=== PATIENT | female | born 1995 | race Two or more races ===

== ENCOUNTER 2020-07-05 07:23 | Emergency (ER) | payer OTHER ==
[~2020-07-05] VITALS: Ht 157.5 cm; Wt 45.4 kg
[2020-07-05] MEDS ORDERED: ZYRTEC10 M3 PO (07:37)
== END 2020-07-05 09:48 | disposition home or self-care (01) ==
LOC: ER 07:23
DX: T78.1XXA Other adverse food reactions, not elsewhere classified, initial encounter (principal); R21 Rash and other nonspecific skin eruption

== ENCOUNTER 2020-07-08 15:53 | Emergency (ER) | payer OTHER ==
[~2020-07-08] VITALS: Ht 154.9 cm; Wt 45.4 kg
[~2020-07-08 15:53] MED LIST: ZYRTEC10 M3 PO
[2020-07-08] MEDS ORDERED: BENADRYL25 MG PO (23:16)
== END 2020-07-08 23:33 | disposition home or self-care (01) ==
LOC: ER 15:53
DX: T78.1XXA Other adverse food reactions, not elsewhere classified, initial encounter (principal); R21 Rash and other nonspecific skin eruption

== ENCOUNTER 2020-12-13 02:18 | Emergency (ER) | payer OTHER ==
[~2020-12-13] VITALS: Ht 154.9 cm; Wt 45.4 kg
[~2020-12-13 02:18] MED LIST changes: +BENADRYL25 MG PO
[2020-12-13] MEDS ORDERED: ZYRTEC10 M3 (02:31)
[2020-12-13] MEDS ORDERED: BACLOFEN10 MG (02:31)
[2020-12-13] MEDS ORDERED: BENADRYL25 MG PO (06:09)
== END 2020-12-13 07:17 | disposition home or self-care (01) ==
LOC: ER 02:18
DX: G25.89 Other specified extrapyramidal and movement disorders (principal)

== ENCOUNTER 2020-12-14 13:41 | Emergency (ER) | payer OTHER ==
[~2020-12-14] VITALS: Ht 154.9 cm; Wt 45.4 kg
[~2020-12-14 13:41] MED LIST changes: +BACLOFEN10 MG; +ZYRTEC10 M3
== END 2020-12-14 19:55 | disposition home or self-care (01) ==
LOC: ER 13:41
DX: R51.9 Headache, unspecified (principal)

== ENCOUNTER 2021-07-29 07:28 | Outpatient (CLI) | payer OTHER | END 2021-07-29 07:41 | disposition home or self-care (01) | LOC: RAD 07:28 | PROVIDERS: ATTEND Anesthesiology Pain Medicine | DX: M41.34 Thoracogenic scoliosis, thoracic region (principal); M50.21 Other cervical disc displacement, high cervical region; E55.9 Vitamin D deficiency, unspecified; D51.9 Vitamin B12 deficiency anemia, unspecified ==

== ENCOUNTER 2021-09-05 21:31 | Emergency (ER) | payer OTHER ==
[~2021-09-05] VITALS: Ht 154.9 cm; Wt 46.3 kg
[2021-09-05] MEDS ORDERED: PROTONIX40 M1 (21:43)
[2021-09-05] MEDS ORDERED: ZITHROMAX500 MG PO (23:50)
[2021-09-05] MEDS ORDERED: TUSNEL LIQUID178 ML PO (23:51)
== END 2021-09-05 23:58 | disposition home or self-care (01) ==
LOC: ER 21:31
DX: J06.9 Acute upper respiratory infection, unspecified (principal); A49.3 Mycoplasma infection, unspecified site; B34.8 Other viral infections of unspecified site

== ENCOUNTER 2022-04-22 23:06 | Emergency (ER) | payer OTHER ==
[~2022-04-22] VITALS: Ht 154.9 cm; Wt 45.8 kg
[~2022-04-22 23:06] MED LIST changes: +PROTONIX40 M1; +TUSNEL LIQUID178 ML PO; +ZITHROMAX500 MG PO
[2022-04-23] MEDS ORDERED: DOLOGESIC-DF 51 EACH PO (06:07)
== END 2022-04-23 06:14 ==
LOC: ER 23:06
DX: S99.922A Unspecified injury of left foot, initial encounter (principal); W22.8XXA Striking against or struck by other objects, initial encounter; Y93.9 Activity, unspecified; Y92.9 Unspecified place or not applicable; Y99.9 Unspecified external cause status

== ENCOUNTER 2022-07-24 07:28 | Emergency (ER) | payer OTHER ==
[~2022-07-24] VITALS: Ht 154.9 cm; Wt 44.9 kg
[~2022-07-24 07:28] MED LIST changes: +DOLOGESIC-DF 51 EACH PO
[2022-07-24] MEDS ORDERED: ZYRTEC10 MG (07:43)
== END 2022-07-24 11:26 | disposition home or self-care (01) ==
LOC: ER 07:28
DX: O26.891 Other specified pregnancy related conditions, first trimester (principal); Z3A.01 Less than 8 weeks gestation of pregnancy; B34.9 Viral infection, unspecified; Z20.822 Contact with and (suspected) exposure to COVID-19; Z88.6 Allergy status to analgesic agent; Z91.013 Allergy to seafood; Z91.048 Other nonmedicinal substance allergy status

== ENCOUNTER 2022-08-08 19:22 | Emergency (ER) | payer OTHER ==
[~2022-08-08] VITALS: Ht 154.9 cm; Wt 44.9 kg
[~2022-08-08 19:22] MED LIST changes: +ZYRTEC10 MG
== END 2022-08-08 22:08 | disposition home or self-care (01) ==
LOC: ER 19:22
DX: O03.9 Complete or unspecified spontaneous abortion without complication (principal)

== ENCOUNTER 2022-10-08 09:58 | Emergency (ER) | payer OTHER ==
[~2022-10-08] VITALS: Ht 154.9 cm; Wt 45.8 kg
[2022-10-08] MEDS ORDERED: ZYRTEC10 MG PO (10:31)
[2022-10-08] MEDS ORDERED: PROTONIX40 MG PO (10:31)
[2022-10-08] MEDS ORDERED: ZITHROMAX500 MG PO (15:02)
== END 2022-10-08 15:27 | disposition home or self-care (01) ==
LOC: ER 09:58
DX: B34.9 Viral infection, unspecified (principal); Z20.822 Contact with and (suspected) exposure to COVID-19; Z88.6 Allergy status to analgesic agent; Z91.013 Allergy to seafood; Z91.018 Allergy to other foods

== ENCOUNTER 2024-02-23 13:00 | Inpatient (IN) | payer OTHER ==
[~2024-02-23] VITALS: Ht 154.9 cm; Wt 52.6 kg
[~2024-02-23 13:00] MED LIST changes: +PROTONIX40 MG PO; +ZYRTEC10 MG PO
[2024-03-09] VITALS (8 sets, daily range): BP systolic 106–130; BP diastolic 60–71
[2024-03-09] MEDS ORDERED: PRENATAL TABLE1 EAC4 PO (02:44)
[2024-03-09] MEDS ORDERED: OXYTOCIN 500 ML IV ONE (07:45)
[2024-03-09 08:38] LABS: HEMATOCRIT 35.6 % (36.0-45.00); HEMOGLOBIN 12.5 g/dL (12.0-15.00); MEAN CELL VOLUME 87.9 fL (80.00-100.00); MEAN CORPUSCULAR HEMOGLOBIN 30.9 pg (27.00-32.0); MEAN CORPUSCULAR HGB CONC 35.1 g/dl (32.0-36.0); PLATELET COUNT 160 K/uL (150-450); RED BLOOD COUNT 4.05 M/uL (4.00-6.00)
[2024-03-09 08:41] LABS: RED CELL DISTRIBUTION WIDTH 18.5 % (11.5-14.5)
[2024-03-09] MEDS ORDERED: MORPHINE SULFATE 4 MG/ML CARTRIDGE IV ONE ×2 (09:30→11:30)
[2024-03-09 09:45] LABS: ALBUMIN 2.8 gm/dL (3.4-5.0); BILIRUBIN TOTAL 0.32 mg/dL (0.3-1.2); CALCIUM 8.9 mg/dL (8.5-10.1); CREATININE SERUM 0.46 mg/dL (0.55-1.02); GFR 161.75; GLOBULINA 3.4 G/DL (2.4-3.5); POTASSIUM 3.95 mEq/L (3.5-5.1); TOTAL PROTEIN 6.2 gm/dL (6.4-8.2)
[2024-03-09 09:49] LABS: INR < 0.93; PARTIAL THROMBOPLASTIN TIME 29.9 SECONDS (22.0-34.0); PROTHROMBIN TIME 10.1 SECONDS (9.0-11.5)
[2024-03-09] MEDS ORDERED: ERYTHROMYCIN BASE OPHT 1GM EACH TUBE OP ONE ×2 (10:58→14:45)
[2024-03-09] MEDS ORDERED: OXYTOCIN 20 UNITS/1000ML RL PIGGYBAG IV ONE (10:58)
[2024-03-09] MEDS ORDERED: LIDOCAINE HCL 1% 10ML VIAL ONE (10:58)
[2024-03-09] MEDS ORDERED: CHLORHEXIDINE GLUCONATE 120 ML BOTTLE TOP ONE (10:58)
[2024-03-09] MEDS ORDERED: OXYTOCIN 1,000 ML IV SCH (14:15)
[2024-03-09] MEDS ORDERED: CHLORHEXIDINE GLUCONATE 120 ML BOTTLE TP SCH (14:15)
[2024-03-09] MEDS ORDERED: ACETAMINOPHEN 500 MG GEL..CAP PO PRN (14:15)
[2024-03-09] MEDS ORDERED: LIDOCAINE HCL 1% 10ML VIAL IJ ONE (14:45)
[2024-03-10] VITALS: BP 113/75
[2024-03-10 06:57] LABS: HEMATOCRIT 36.1 % (36.0-45.00); HEMOGLOBIN 12.4 g/dL (12.0-15.00); MEAN CELL VOLUME 89.5 fL (80.00-100.00); MEAN CORPUSCULAR HEMOGLOBIN 30.9 pg (27.00-32.0); MEAN CORPUSCULAR HGB CONC 34.5 g/dl (32.0-36.0); PLATELET COUNT 174 K/uL (150-450); RED BLOOD COUNT 4.03 M/uL (4.00-6.00); RED CELL DISTRIBUTION WIDTH 18.5 % (11.5-14.5)
[2024-03-10] MEDS ORDERED: FAMOtidine 20 MG TABLET PO SCH (09:00)
[2024-03-10] MEDS ORDERED: IBUprofen 400 MG TABLET PO PRN (09:00)
[2024-03-10 09:14] VITALS: BP 103/66
[2024-03-10 16:50] VITALS: BP 105/70
[2024-03-11] VITALS: BP 94/60
[2024-03-11 08:01] VITALS: BP 104/70
== END 2024-03-11 13:29 | disposition home or self-care (01) | DRG 807 ==
LOC: SURG 03-06 13:00 → LDR 03-09 07:36 → OB/GYN 03-09 15:51
PROVIDERS: Obstetrics & Gynecology; ADMIT Obstetrics & Gynecology Maternal & Fetal Medicine; ATTEND Obstetrics & Gynecology Maternal & Fetal Medicine
PROC: 10E0XZZ Delivery of Products of Conception, External Approach (ICD-10-PCS; principal; 2024-03-09)
PROC: 0KQM0ZZ Repair Perineum Muscle, Open Approach (ICD-10-PCS; 2024-03-09)
PROC: 4A1HXCZ Monitoring of Products of Conception, Cardiac Rate, External Approach (ICD-10-PCS; 2024-03-09)
DX: O70.1 Second degree perineal laceration during delivery (principal); O69.81X0 Labor and delivery complicated by cord around neck, without compression, not applicable or unspecified; Z37.0 Single live birth; Z3A.39 39 weeks gestation of pregnancy; Z20.822 Contact with and (suspected) exposure to COVID-19

== ENCOUNTER 2024-03-09 02:31 | Outpatient (CLI) | payer OTHER ==
[2024-03-09 01:28] VITALS: BP 106/70
[2024-03-09] MEDS ORDERED: PRENATAL TABLE1 EAC4 PO (02:44)
[2024-03-09 05:00] VITALS: BP 110/69
[2024-03-09 07:44] VITALS: BP 105/60
== END 2024-03-09 07:39 | disposition still patient (30) ==
LOC: OBS/DEL 02:31
PROVIDERS: ATTEND Obstetrics & Gynecology Maternal & Fetal Medicine
DX: O26.893 Other specified pregnancy related conditions, third trimester (principal)

== ENCOUNTER 2025-06-03 17:47 | Emergency (ER) | payer OTHER ==
[~2025-06-03] VITALS: Ht 154.9 cm; Wt 45.4 kg
[~2025-06-03 17:47] MED LIST changes: +PRENATAL TABLE1 EAC4 PO
[2025-06-03] MEDS ORDERED: FAMOtidine 10 MG/ML (4ML VIAL) IV PUSH ONE (20:45)
[2025-06-03] MEDS ORDERED: CYCLOBENZAPRINE HCL 5 MG TABLET PO ONE (20:45)
[2025-06-03] MEDS ORDERED: KETOROLAC TROMETHAMINE 30 MG VIAL IV ONE (20:45)
[2025-06-03] MEDS ORDERED: KETOROLAC TROMETHAMINE 30 MG VIAL ONE (22:11)
[2025-06-03] MEDS ORDERED: FAMOTIDINE/PF 20 MG/2 ML VIAL ONE (22:12)
[2025-06-03 23:47] LABS: BASO % 0.7 % (0.1-1.2); EOS # 0.11 (0.04-0.54); EOS % 2.4 % (0.7-7.0); LYMPH # 1.11 (1.18-3.74); LYMPH % 24.7 % (19.3-53.1); MEAN PLATELET VOLUME 10.60 fl (9.4-12.4); MONO # 0.54 (0.24-0.82); MONO % 12.0 % (4.7-12.5); NEUT # 2.69 (1.56-6.13); NEUT % 60.0 % (34.0-71.1); RED CELL DISTRIBUTION WIDTH 12.6 % (11.6-14.4)
[2025-06-04 00:08] LABS: ALT/SGPT 17.0 U/L (12-78); AST/SGOT 14.0 U/L (15-37); BILIRUBIN TOTAL 0.43 mg/dL (0.3-1.2); BUN CREA RATIO 23.0 (7.0-25.0); CREATININE SERUM 0.56 mg/dL (0.55-1.02); GFR 127.99; GLOBULINA 2.9 G/DL (2.4-3.5); GLUCOSE FASTING 121.0 mg/dL (65-100); OSMOLALITY SERUM 283.0 MOSM/KG (275-295)
[2025-06-04] MEDS ORDERED: DICLOFENAC SODI75 MG PO (01:17)
[2025-06-04] MEDS ORDERED: NORFLEX100MG PO (01:17)
== END 2025-06-04 02:59 | disposition home or self-care (01) ==
LOC: ER 17:47
PROVIDERS: General Practice
DX: M54.59 Other low back pain (principal); M41.80 Other forms of scoliosis, site unspecified; Z88.6 Allergy status to analgesic agent; Z91.013 Allergy to seafood; Z91.018 Allergy to other foods